=== PATIENT | female | born 1960 | race Caucasian/White ===

== ENCOUNTER 2017-04-14 07:51 | Emergency (ER) | payer BC ==
[2017-04-14] MEDS ORDERED: Albuterol 2.5 MG/3 ML NEB.SOL* (0.083%) INH ONE (08:53)
[2017-04-14] MEDS ORDERED: Ipratropium 0.5MG/2.5ML NEB* 0.5 MG/2.5 ML NEB.SOLN INH ONE (08:53)
[2017-04-14 09:28] VITALS: BP 141/96
--- NOTE | 2017-04-14 10:41 | UC ---
Alf Collins Nilda, scribed for Claudia Ramos DO on 04/14/17 at 0855 . Respiratory Complaint HPI - HPI Summary HPI Summary: This patient is a 56 year old F presenting to [facility] [place] with a chief complaint of constant nonproductive cough for the past month that worsened 1 week ago. The patient rates the pain 5/10 in severity. Symptoms aggravated by nothing and alleviated by inhaler. Patient reports sleep disturbance, body aches, headache, and sore throat secondary to coughing spasms, chills, sinus congestion (this morning), bilat ear pressure (1 week), and chronic abd pain secondary to gall stones. Patient denies fever, N/V, and CP. She states recent sick contacts at work. Pt notes shes currently going through menopause. - History of Current Complaint Chief Complaint: UCRespiratory Stated Complaint: URI Time Seen by Provider: 04/14/17 08:20 Hx Obtained From: Patient Onset/Duration: Sudden Onset, Lasting Days, Still Present Timing: Constant Severity Currently: Moderate Pain Intensity: 5 Pain Scale Used: 0-10 Numeric Character: Cough: Nonproductive Aggravating Factors: Nothing Alleviating Factors: Bronchodilator - inhaler Associated Signs And Symptoms: Positive: Chills, URI, Nasal Congestion. Negative: Fever - Allergies/Home Medications Allergies/Adverse Reactions: Allergies Allergy/AdvReac Type Severity Reaction Status Date / Time Anesthetics - Amide Type Allergy Severe Airway Verified 04/14/17 08:27 Obstruction Narcotic Allergy Respiratory Uncoded 04/14/17 08:27 Depression Home Medications: Home Medications Albuterol HFA INHALER* [Ventolin HFA Inhaler*] 1 - 2 puff INH Q4HR PRN 04/14/17 [History Confirmed 04/14/17] Amlodipine Besylate [Norvasc 2.5 mg tab] 2.5 mg PO DAILY 04/14/17 [History Confirmed 04/14/17] Ubidecarenone [Coenzyme Q-10] 1 tab PO DAILY 04/14/17 [History Confirmed ] guaiFENesin LIQ* [Robitussin*] 10 ml PO Q12HR PRN 04/14/17 [History Confirmed ] PMH/Surg Hx/FS Hx/Imm Hx Endocrine History: Diabetes, Other Other Endocrine History: HLD Cardiovascular History: Hypertension Respiratory History: Other Other Respiratory History: sleep apnea Psychological History: Depression - Surgical History Surgical History: Yes Surgery Procedure, Year, and Place: 02/03 [facility] [place]- colonoscopy w/multiple polyps removed, 10/07 [facility] [place]- hysterectomy, LEFT side TUMOR-fatty tumor, LAPAROSCOPY-1984 cyst on ovary removed, WISDOM TEETH; Rectal polyp removed 2016 - Family History Known Family History: Positive: Hypertension Negative: Diabetes - Social History Alcohol Use: Rare Substance Use Type: None Smoking Status (MU): Former Smoker Type: Cigarettes Amount Used/How Often: A TEENAGER Have You Smoked in the Last Year: No When Did the Patient Quit Smoking/Using Tobacco: 1979 - Immunization History Most Recent Influenza Vaccination: 2011 Most Recent Tetanus Shot: unknown Most Recent Pneumonia Vaccination: unsure Review of Systems Constitutional: Chills, Other - negative fever ENT: Sore Throat, Ear Ache - pressure, Sinus Congestion Respiratory: Cough - cough spasms Cardiovascular: Other - negative CP Gastrointestinal: Abdominal Pain - chronic, Other - negative N/V Musculoskeletal: Myalgia Neurological: Headache All Other Systems Reviewed And Are Negative: Yes Physical Exam Triage Information Reviewed: Yes Appearance: Well-Appearing, No Pain Distress, Well-Nourished Vital Signs: Initial Vital Signs Temp 100.1 F 04/14/17 08:20 Pulse 97 04/14/17 08:20 Resp 20 04/14/17 08:20 BP 147/90 04/14/17 08:20 Pulse Ox 99 04/14/17 08:20 Vital Signs Reviewed: Yes Eyes: Positive: Conjunctiva Clear. Negative: Discharge ENT: Positive: Hearing grossly normal, TMs normal, Other - Exquisitely tender maxillary sinuses.. Negative: Tonsillar swelling, Tonsillar exudate, Trismus, Muffled voice, Hoarse voice Neck: Positive: Supple, Nontender Respiratory: Positive: Normal breath sounds, No respiratory distress, No accessory muscle use, Wheezing, Other: - Prolonged expiration at the bases. Cardiovascular: Positive: RRR, No Murmur Abdomen Description: Positive: Nontender, Soft. Negative: Distended, Guarding Bowel Sounds: Positive: Present Musculoskeletal Exam: Normal Neurological: Positive: Alert, Muscle Tone Normal Psychological: Positive: Age Appropriate Behavior Skin Exam: Normal Skin: Positive: Other - Warm, Dry, Normal color UC Diagnostic Evaluation - Laboratory O2 Sat by Pulse Oximetry: 99 Re-Evaluation - Re-Evaluation First Eval Re-Evaluation Time: 09:29 Comment: Wheezing resolved. Pt is breathing better. Reviewed D/C plan. Respiratory Course/Dx - Course Course Of Treatment: This patient is a 56 year old F presenting to [facility] [place] with a chief complaint of constant nonproductive cough for the past month that worsened 1 week ago. The patient rates the pain 5/10 in severity. Symptoms aggravated by nothing and alleviated by inhaler. Patient reports sleep disturbance, body aches, headache, and sore throat secondary to coughing spasms , chills, sinus congestion (this morning), bilat ear pressure (1 week), and chronic abd pain secondary to gall stones. Patient denies fever, N/V, and CP. She states recent sick contacts at work. Pt notes shes currently going through menopause. In the [facility] course the patient was given Ventolin and Atrovent nebulizer treatment. Patient will be discharged with Dx of sinusitis and acute bronchitis, prescription for Augmentin, Tessalon, Guaiatussin, and Mucinex, and follow up from PCP. The patient is agreeable with this plan. Medications reviewed. Allergies reviewed. High blood pressure noted. - Differential Dx/Diagnosis Provider Diagnoses: acute bronchitis, sinusitis Discharge - Discharge Plan Condition: Stable Disposition: HOME Prescriptions: Amoxicillin/Clavulanate TAB* [Augmentin TAB 875*] 875 mg PO BID #20 tab Benzonatate CAP* [Tessalon 100 MG CAP*] 100 mg PO TID #30 cap Codeine Phosphate/Guaifenesin [Guaiatussin AC] 5 - 10 ml PO BEDTIME PRN #100 ml MDD 10ml PRN Reason: Cough guaiFENesin ER TAB [Mucinex*] 600 mg PO BID PRN #1 box PRN Reason: Cough Patient Education Materials: Acute Bronchitis (ED), Sinusitis (ED) Referrals: Teresita Good NP [Primary Care Provider] - 1 Week Additional Instructions: TRY USING THE NETTI POT IN THE MORNINGS DISCUSSED. YOU MUST ALWAYS USE CLEAN WATER. REMEMBER, POSTURE IS AN IMPORTANT FACTOR IN SINUS DRAINAGE. MOVE YOUR NECK, BREATHE. INHALED BRONCHODILATORS: You have received a prescription for an inhaled bronchodilator -- a medication which stimulates the airways in the lung to dilate. This improves the flow of air in asthma, bronchitis, and emphysema. These medicines have some similarity to adrenaline, and can cause similar side effects: shakiness, racing heart, and a sense of nervousness. These side effects decrease with time. Contact your doctor if these side effects are severe. Do not over-use the medicine. Too-frequent use of the inhaler may make it ineffective. Call your doctor if the inhaler is not controlling your symptoms at the prescribed doses. COUGH-SUPPRESSANT & EXPECTORANT MEDICATION: You are to use a cough medication as needed for relief of symptoms. This medicine is a combination of an expectorant (to make the mucous thinner and more easily "coughed up") and a cough suppressant (to reduce the frequency of coughing). The cough-suppressant medicine is related to narcotics. You may experience mild nausea and sleepiness. Some patients who are very sensitive to narcotics may have stomach pain from this medicine. Taking the medicine with food reduces these side effects. Do not drive or work with machinery until you know how this medicine affects you. The expectorant should have no side effects. Iodine-containing expectorants (such as organidin) should not be taken by persons with active thyroid disease unless approved by your doctor. Call the doctor if you develop shortness of breath, hives, rash, itching, lightheadedness, or severe nausea and vomiting. EXPECTORANT MEDICATION: An expectorant medicine has been prescribed. This type of drug makes mucous thinner, helping the sinuses, nose, and bronchial tubes to remain free of pus and mucous. Expectorants make a cough less severe and more comfortable, and help infected sinuses drain. In general, antihistamines defeat the purpose of the expectorant by making mucous thicker. They should be avoided unless specifically recommended by your physician. TESSALON PERLES: You have received a prescription for Tessalon Perles (benzonatate). This is a non-narcotic medicine for relief of cough. It usually works in about 15- 20 minutes and lasts around four hours. Tessalon Perles should be swallowed. They should not be chewed or dissolved in the mouth (this can produce temporary numbing of the mouth and choking can occur). If you develop any adverse effects such as wheezing, shortness of breath, hives, rash, itching, or lightheadedness, please return at onc ANTIBIOTICS ARE NOT CURRENTLY INDICATED FOR YOUR CONDITION. HOWEVER, IF YOUR SYMPTOMS WORSEN OR PERSIST FOR OVER THE NEXT 3-5 DAYS, YOU CAN TAKE THE FOLLOWING MEDICATION: AUGMENTIN: Augmentin is a mixture of amoxicillin and clavulanate. Amoxicillin is a member of the penicillin family. It covers the germs likely to cause ear, bronchial, and urinary infections better than plain penicillin. The addition of clavulanate allows it to cover staph infections of the skin, as well as resistant cases of ear and sinus infections. Your physician has chosen Augmentin for you because of the special nature of your situation. Augmentin is best taken with meals. Nausea after taking the medication is rare, but can occur. Diarrhea can occur, particularly in small children. Vaginal yeast infections, and oral thrush in infants are also common. Contact your physician if these problems occur. Allergy to penicillins is common. If you have had an allergic reaction to any drug of the penicillin family, you should never take any other penicillin. Notify your doctor at once if you develop hives, shortness of breath, swelling, or faintness. ANYTIME YOU TAKE AN ANTIBIOTIC, IT IS IMPORTANT TO REPLENISH THE BODY'S SUPPLY OF "GOOD BACTERIA." YOU CAN GET GOOD BACTERIA FROM HIGH QUALITY CULTURED FOODS SUCH LOCAL YOGURT, SOUR KRAUT, CHARLIE YARELIS, NATURALLY FERMENTED PICKLES AND PROBIOTIC DRINKS. YOU CAN ALSO GET GOOD BACTERIA FROM A PROBIOTIC SUPPLEMENT. YOUR REFLUX MAY BE CONTRIBUTING TO THE CHRONIC ASPECT OF YOUR COUGH. YOU WOULD LIKELY BENEFIT FROM OSTEOPATHIC MANIPULATION. WE RECOMMEND THAT YOU FIND AN OSTEOPATHIC PHYSICIAN IN YOUR AREA WHO DOES LYMPHATIC, MYOFACIAL AND VISCERAL WORK The documentation as recorded by the Alf cox Nilda accurately reflects the service I personally performed and the decisions made by , Claudia Ramos DO.
== END 2017-04-14 10:12 | disposition home or self-care (01) ==
LOC: UCEAST 07:51
DX: J20.9 Acute bronchitis, unspecified (principal); J32.9 Chronic sinusitis, unspecified; E11.9 Type 2 diabetes mellitus without complications; E78.5 Hyperlipidemia, unspecified; I10 Essential (primary) hypertension; G47.30 Sleep apnea, unspecified; F32.9 Major depressive disorder, single episode, unspecified; Z90.710 Acquired absence of both cervix and uterus; Z88.4 Allergy status to anesthetic agent; Z88.5 Allergy status to narcotic agent; Z87.891 Personal history of nicotine dependence
CPT/HCPCS: 99212; G0463; J7644